=== PATIENT | female | born 1995 | race Caucasian/White ===

== ENCOUNTER 2020-04-18 22:08 | Emergency (ER) | payer OTHER ==
[~2020-04-18] VITALS: Ht 154.9 cm; Wt 68.0 kg
--- NOTE | 2020-04-18 22:42 | Emergency Department Note ---
History of Present Illnes History of Present Illness Chief Complaint: COVID PUI History of Present Illness This is a 25 year old female 4 days of fever myalgias and DORAN . Arrival Mode: Car Onset (how long ago): day(s) (4) Severity: mild Onset quality: gradual Duration (how long): day(s) (4) Timing of current episode: constant Progression: unchanged Chronicity: new Relieving factors: none Exacerbating factors: none Associated symptoms: Reports fever/chills, Reports headaches, Reports malaise Past Medical/Family History Physician Review I have reviewed the patient's past medical and family history. Any updates have been documented here. Past Medical History Recent Fever: Yes Clinical Suspicion of Infectio: Yes New/Unexplained Change in Ment: No Social History Smoking Cessation: Never Smoker Alcohol Use: None Any Illegal Drug Use: No Review of Systems Review of Systems Constitutional: Reports fever, Reports malaise, Reports weakness EENTM: Reports no symptoms Cardiovascular: Reports no symptoms Respiratory: Reports no symptoms Gastrointestinal: Reports no symptoms Genitourinary: Reports no symptoms Musculoskeletal: Reports no symptoms Integumentary: Reports no symptoms Neurological: Reports headache Psychological: Reports no symptoms Endocrine: Reports no symptoms Hematological/Lymphatic: Reports no symptoms Physical Exam Related Data Allergies: Coded Allergies: No Known Allergies (Unverified , 04/18/20) Vital signs reviewed: Yes Physical Exam CONSTITUTIONAL Constitutional: Present well-developed, Present well-nourished HENT HENT: Present normocephalic, Present atraumatic, Present oropharynx clear/moist, Present nose normal HENT L/R: Present left ext ear normal, Present right ext ear normal EYES Eyes: Reports PERRL, Reports conjunctivae normal NECK Neck: Present ROM normal PULMONARY Pulmonary: Present effort normal, Present breath sounds normal CARDIOVASCULAR Cardiovascular: Present heart sounds normal, Present tachycardia GASTROINTESTINAL Abdominal: Present soft, Present nontender, Present bowel sounds normal GENITOURINARY Genitourinary: Present exam deferred SKIN Skin: Present warm, Present dry MUSCULOSKELETAL Musculoskeletal: Present ROM normal NEUROLOGICAL Neurological: Present alert, Present oriented x 3, Present no gross motor or sensory deficits PSYCHOLOGICAL Psychological: Present mood/affect normal, Present judgement normal Assessment & Plan Medical Decision Making MDM 25 yof with fever and myalgias. (+) contact with family members with similiar symptoms. COVID-19 highly suspected but testing deferred secondary to stable vital signs and high oxygen saturation on RA. Patient to be given Rx Azithromycin and albuterol. Patient to be given resources for outpatient testing center- Assessment & Plan Final Impression: (1) Viral syndrome Depart Disposition: HOME, SELF-CARE DEBO CHRIS DO Apr 18, 2020 22:42
[2020-04-18] MEDS ORDERED: ACETAMINOPHEN 325 MG TAB ONE (22:51)
== END 2020-04-19 00:05 | disposition home or self-care (01) ==
LOC: ER 22:39
DX: B34.9 Viral infection, unspecified (principal); R50.9 Fever, unspecified; R51 Headache; M79.10 Myalgia, unspecified site
CPT/HCPCS: 99283

== ENCOUNTER 2020-06-01 20:11 | Emergency (ER) | payer OTHER ==
[~2020-06-01] VITALS: Ht 154.9 cm; Wt 68.0 kg
[2020-06-01] MEDS ORDERED: METHYLPREDNISOLONE SOD SUCC 125 MG/2ML VIAL ONE (20:56)
[2020-06-01] MEDS ORDERED: FAMOTIDINE 20 MG TAB ONE (20:56)
[2020-06-01] MEDS ORDERED: DIPHENHYDRAMINE HCL 25 MG CAP ONE (20:57)
[2020-06-01] MEDS ORDERED: METHYLPREDNISOLONE SOD SUCC 125 MG/2ML VIAL IM ONE (21:00)
[2020-06-01] MEDS ORDERED: FAMOTIDINE 20 MG TAB PO ONE (21:00)
[2020-06-01] MEDS ORDERED: DIPHENHYDRAMINE HCL 25 MG CAP PO ONE (21:00)
[2020-06-01 21:07] VITALS: BP 122/78
--- NOTE | 2020-06-01 21:10 | Emergency Department Note ---
History of Present Illnes History of Present Illness Chief Complaint: Skin Rash or Abscess History of Present Illness This is a 25 year old female presents to ED with hives, itching sensation to all extremities, torso. Pt states s/s started at 2200 yesterday when pt was in backyard.. Denies sob . Historian: Patient Arrival Mode: Car Onset (how long ago): day(s) (1) Location: all over Quality: rash/hives Radiation: Reports non-radiation Severity: moderate Onset quality: sudden Duration (how long): day(s) (1) Timing of current episode: constant Progression: unchanged Chronicity: new Context: Denies recent illness, Denies recent surgery, Denies trauma/injury Relieving factors: none Exacerbating factors: none Associated symptoms: Reports denies other symptoms Treatments prior to arrival: other (took benaryl once last night) Past Medical/Family History Physician Review I have reviewed the patient's past medical and family history. Any updates have been documented here. Past Medical History Recent Fever: No Clinical Suspicion of Infectio: No New/Unexplained Change in Ment: No Past Medical History: None Past Surgical History: None Social History Smoking Cessation: Never Smoker Counseling Performed: No Alcohol Use: None Any Illegal Drug Use: No Family History Family history of heart diseas: No Other Any Pre-Existing Lines (PICC,: No Review of Systems Review of Systems Constitutional: Reports no symptoms EENTM: Reports no symptoms Cardiovascular: Reports no symptoms Respiratory: Reports no symptoms Gastrointestinal: Reports no symptoms Genitourinary: Reports no symptoms Musculoskeletal: Reports no symptoms Integumentary: Reports as per HPI Neurological: Reports no symptoms Psychological: Reports no symptoms Endocrine: Reports no symptoms Hematological/Lymphatic: Reports no symptoms Physical Exam Related Data Allergies: Coded Allergies: No Known Allergies (Unverified , 04/18/20) Triage Vital Signs Vital Signs Date Time Temp Pulse Resp B/P (MAP) Pulse Ox O2 Delivery O2 Flow Rate FiO2 06/01/20 20:47 98.3 69 17 130/89 100 Room Air Vital signs reviewed: Yes Physical Exam CONSTITUTIONAL Constitutional: Present well-developed, Present well-nourished; Absent distressed HENT HENT: Present normocephalic, Present atraumatic, Present oropharynx cl ear/moist, Present nose normal HENT L/R: Present left ext ear normal, Present right ext ear normal EYES Eyes: Reports PERRL, Reports conjunctivae normal NECK Neck: Present ROM normal PULMONARY Pulmonary: Present effort normal, Present breath sounds normal CARDIOVASCULAR Cardiovascular: Present regular rhythm, Present heart sounds normal, Present capillary refill normal, Present normal rate GASTROINTESTINAL Abdominal: Present soft, Present nontender, Present bowel sounds normal GENITOURINARY Genitourinary: Present exam deferred SKIN Skin: Present warm, Present dry, Present rash (hives to all extremities and torso) MUSCULOSKELETAL Musculoskeletal: Present ROM normal NEUROLOGICAL Neurological: Present alert, Present oriented x 3, Present no gross motor or sensory deficits PSYCHOLOGICAL Psychological: Present mood/affect normal, Present judgement normal Assessment & Plan Medical Decision Making [facility] pt with hives solu-medrol 125 mg im ordered benadryl 25 mg po ordered pepci 20 mg po ordered PT DISCHARGED WITH PRESCRIPTION FOR MEDROL DOSE PACK DIRECTED INSTRUCTED ON OTC BENADRYL AND PEPCID WELL Reassessment Reassessment time: 21:50 Reassessment RASH HAS IMPROVED, PT STATES ITCHING HAS RESOLVED AT THIS TIME Assessment & Plan Final Impression: (1) Hives Depart Disposition: HOME, SELF-CARE Last Vital Signs Date Time Temp Pulse Resp B/P (MAP) Pulse Ox O2 Delivery O2 Flow Rate FiO2 06/01/20 20:47 98.3 69 17 130/89 100 Room Air Medications in the ED Famotidine 40 mg STK-MED ONCE .ROUTE ; Start 06/01/20 at 20:56; Stop 06/01/20 at 20:50; Status DC Methylprednisolone Sodium Succinate 125 mg STK-MED ONCE .ROUTE ; Start 06/01/20 at 20:56; Stop 06/01/20 at 20:50; Status DC Diphenhydramine HCl 25 mg STK-MED ONCE .ROUTE ; Start 06/01/20 at 20:57; Stop 06/01/20 at 20:50; Status DC Diphenhydramine HCl 25 mg ONCE ONCE PO ; Start 06/01/20 at 21:00; Stop 06/01/20 at 21:01; Status DC Famotidine 20 mg ONCE ONCE PO ; Start 06/01/20 at 21:00; Stop 06/01/20 at 21:01; Status DC Methylprednisolone Sodium Succinate 125 mg ONCE ONCE IM ; Start 06/01/20 at 21:00; Stop 06/01/20 at 21:01; Status DC DMITRY SIEGEL MD Jun 01, 2020 21:10
--- OUTSIDE RECORDS SUMMARY | 2020-06-01 22:08 | XMS REPORT | Continuity of Care Document ---
Author Author [facility] Organization [facility] Address [address] [place] [address] Phone Unavailable Care Team Providers Care Express Clerk Name Role Phone MD MICHAEL NEAL PCP Payers Payer Name Policy Type Policy Number Effective Date Expiration Date Ignacia quiros [facility] [id number] [facility] Problems Condition Name Condition Details Condition Category Status Onset Date Resolution Date Last Treatment Date Treating Clinician Comments Source Viral infection Problem Active [facility] Allergies, Adverse Reactions, Alerts Allergy Name Allergy Type Status Severity Reaction(s) Onset Date Inacti ve Date Treating Clinician Comments Source No Known Allergies DA Active U 2020-01-11 00:00:00 [facility] Social History Social Habit Start Date Stop Date Quantity Comments Source Sex Assigned At 1995 00:00:00 1995 00:00:00 Female [facility] Medications This patient has no known medications. Vital Signs Vital Name Observation Time Observation Value Comments Source Weight 2020-04-18 22:47:00 150 [lb_av] [facility] BMI (Body Mass Index) 2020-04-18 22:47:00 28.3 kg/m2 [facility] Procedures This patient has no known procedures. Plan of Care Planned Activity Planned Date Details Comments Source Instructions COVID-19: 12/29/2019 [facility] Instructions Fever - Adult [facility] Encounters Start Date/Time End Date/Time Encounter Type Admission Type Att[facility] Care Department Encounter ID Source 2020-04-18 22:39:2020-04-19 00:05:00 Departed Emergency Room [facility] [id number] [facility] Results Test Description Test Time Test Comments Results Result Comments Source CBC W/AUTO DIFF 2020-01-14 05:57:00 Test Item WHITE BLOOD CELL (test code = WBC) 15.0 K/mm3 4.5-12.5 H RED BLOOD CELL (test code = RBC) 3.76 mill/mm3 3.7-5.2 N HEMOGLOBIN (test code = HGB) 10.3 gram/dL 11.5-15.5 L HEMATOCRIT (test code = HCT) 31.4 % 36.0-46.0 L MEAN CELL VOLUME (test code = MCV) 83.5 fL 80-98 N MEAN CELL HGB (test code = MCH) 27.4 picogram 27.0-33.0 N MEAN CELL HGB CONCETRATION (test code = MCHC) 32.8 gram/dL 33.0-36. 0 L RED CELL DISTRIBUTION WIDTH (test code = RDW) 14.0 % 11.6-16. 2 N RED CELL DISTRIBUTION WIDTH SD (test code = RDW-SD) 42.6 fL 37 .0-51.0 N PLATELET COUNT (test code = PLT) 227 K/mm3 150-450 N MEAN PLATELET VOLUME (test code = MPV) 11.1 fL 6.7-11.0 H NEUTROPHIL % (test code = NT%) 67.6 % 39.0-69.0 N IMMATURE GRANULOCYTE % (test code = IG%) 0.9 % 0.0-5.0 N LYMPHOCYTE % (test code = LY%) 23.1 % 25.0-55.0 L MONOCYTE % (test code = MO%) 7.3 % 0.0-10.0 N EOSINOPHIL % (test code = EO%) 1.0 % 0.0-5.0 N BASOPHIL % (test code = BA%) 0.1 % 0.0-1.0 N NUCLEATED RBC % (test code = NRBC%) 0.0 % 0-0 N NEUTROPHIL # (test code = NT#) 10.13 K/mm3 1.8-7.7 H IMMATURE GRANULOCYTE # (test code = IG#) 0.13 x10 3/uL 0-0.03 H LYMPHOCYTE # (test code = LY#) 3.46 K/mm3 1.0-5.0 N MONOCYTE # (test code = MO#) 1.10 K/mm3 0-0.8 H EOSINOPHIL # (test code = EO#) 0.15 K/mm3 0.0-0.5 N BASOPHIL # (test code = BA#) 0.02 K/mm3 0.0-0.2 N NUCLEATED RBC # (test code = NRBC#) 0.00 K/mm3 0.0-0.1 N CBC W/AUTO [id number] 05:31:00* Test Item Value Reference Range Interpretation Comments WHITE BLOOD CELL (test code = WBC) 13.4 K/mm3 4.5-12.5 H RED BLOOD CELL (test code = RBC) 3.44 mill/mm3 3.7-5.2 L HEMOGLOBIN (test code = HGB) 9.5 gram/dL 11.5-15.5 L RESULT VERIFIED BY REPEAT ANALYSIS HEMATOCRIT (test code = HCT) 28.5 % 36.0-46.0 L MEAN CELL VOLUME (test code = MCV) 82.8 fL 80-98 N MEAN CELL HGB (test code = MCH) 27.6 picogram 27.0-33.0 N MEAN CELL HGB CONCETRATION (test code = MCHC) 33.3 gram/dL 33.0-36. 0 N RED CELL DISTRIBUTION WIDTH (test code = RDW) 13.9 % 11.6-16. 2 N RED CELL DISTRIBUTION WIDTH SD (test code = RDW-SD) 41.4 fL 37 .0-51.0 N PLATELET COUNT (test code = PLT) 183 K/mm3 150-450 N MEAN PLATELET VOLUME (test code = MPV) 11.5 fL 6.7-11.0 H NEUTROPHIL % (test code = NT%) 64.3 % 39.0-69.0 N IMMATURE GRANULOCYTE % (test code = IG%) 0.7 % 0.0-5.0 N LYMPHOCYTE % (test code = LY%) 25.2 % 25.0-55.0 N MONOCYTE % (test code = MO%) 8.8 % 0.0-10.0 N EOSINOPHIL % (test code = EO%) 0.7 % 0.0-5.0 N BASOPHIL % (test code = BA%) 0.3 % 0.0-1.0 N NUCLEATED RBC % (test code = NRBC%) 0.0 % 0-0 N NEUTROPHIL # (test code = NT#) 8.60 K/mm3 1.8-7.7 H IMMATURE GRANULOCYTE # (test code = IG#) 0.09 x10 3/uL 0-0.03 H LYMPHOCYTE # (test code = LY#) 3.37 K/mm3 1.0-5.0 N MONOCYTE # (test code = MO#) 1.17 K/mm3 0-0.8 H EOSINOPHIL # (test code = EO#) 0.10 K/mm3 0.0-0.5 N BASOPHIL # (test code = BA#) 0.04 K/mm3 0.0-0.2 N NUCLEATED RBC # (test code = NRBC#) 0.00 K/mm3 0.0-0.1 N MANUAL DIFF REQUIRED (test code = MDIFF) NO SPECIMEN COMMENTS: day 1HIV 1 2 COMBO AG/AB [id number] 22:25:00 * Test Item Value Reference Range Interpretation Comments HIV 1 2 COMBO AG/AB SCREEN (test code = [id number]) AB/AG NO N REACTIVE NONREACTIVE NONREACTIVE HIV P24 ANTI GEN NONREACTIVE NONREACTIVE HIV 1&2 ANTIBODY NONREACTIVE THE HIV-1 P24 TEST HELPS DISTINGUISH ACUTE HIV-1INFECTIONFROM ESTABLISHED HIV-1 INFECTION WHEN THE SPECIMEN ISPOSITIVE FOR HIV-1 P24 ANTIGEN. HIV-1 P24 ANTIGEN IS HIGHEST IN THE FIRST FEW WEEKS AFTERINFECTION AG HEPAT B [id number] 22:18:00* Test Item Value Reference Range Interpretation Comments AG HEPAT B SURF (test code = HBSAG) Nonreactive Index Nonreactive AB [id number] 22:18:00* Test Item Value Reference Range Interpretation Comments AB TREPONEMA (test code = TREPAB) Nonreactive Index NonReactive URINALYSIS [id number] 21:50:00* Test Item Value Reference Range Interpretation Comments UA COLOR (test code = COLU) COLORLESS YELLOW A UA APPEARANCE (test code = APPU) CLEAR CLEAR UA GLUCOSE DIPSTICK (test code = DGLUU) NEGATIVE mg/dL NEGATIVE UA BILIRUBIN DIPSTICK (test code = BILU) NEGATIVE mg/dL NEGATIVE UA KETONE DIPSTICK (test code = KETU) NEGATIVE mg/dL NEGATIVE UA SPECIFIC GRAVITY (test code = SGU) 1.004 1.001-1.035 UA BLOOD DIPSTICK (test code = SPENCER) 0.06 mg/dL (1+) mg/dL NEGATIVE A UA PH DIPSTICK (test code = BRIGID) 6.5 5.0-8.0 UA PROTEIN DIPSTICK (test code = PROU) NEGATIVE mg/dL NEGATIVE UA UROBILINIOGEN DIPSTICK (test code = URO) Normal mg/dL NEGATIVE UA NITRITE DIPSTICK (test code = ROXANNE) NEGATIVE NEGATIVE UA LEUKOCYTE ESTERASE W REFLEX (test code = LEUUR) NEGATIVE Kathe/uL NEGATIVE UA WBC (test code = WBCU) 0-5 per HPF 0-5 UA RBC (test code = RBCU) 0-3 #/HPF 0-5 UA EPITHELIAL CELLS (test code = EPIU) MOD per HPF FEW UA BACTERIA (test code = BACU) FEW #/HPF NONE A UA MUCUS (test code = MUCU) FEW #/LPF FEW URINALYSIS [id number] 21:49:00* Test Item Value Reference Range Interpretation Comments UA COLOR (test code = COLU) COLORLESS YELLOW A UA APPEARANCE (test code = APPU) CLEAR CLEAR UA GLUCOSE DIPSTICK (test code = DGLUU) NEGATIVE mg/dL NEGATIVE UA BILIRUBIN DIPSTICK (test code = BILU) NEGATIVE mg/dL NEGATIVE UA KETONE DIPSTICK (test code = KETU) NEGATIVE mg/dL NEGATIVE UA SPECIFIC GRAVITY (test code = SGU) 1.004 1.001-1.035 UA BLOOD DIPSTICK (test code = SPENCER) 0.06 mg/dL (1+) mg/dL NEGATIVE A UA PH DIPSTICK (test code = BRIGID) 6.5 5.0-8.0 UA PROTEIN DIPSTICK (test code = PROU) NEGATIVE mg/dL NEGATIVE UA UROBILINIOGEN DIPSTICK (test code = URO) Normal mg/dL NEGATIVE UA NITRITE DIPSTICK (test code = ROXANNE) NEGATIVE NEGATIVE UA LEUKOCYTE ESTERASE W REFLEX (test code = LEUUR) NEGATIVE Kathe/uL NEGATIVE UA WBC (test code = WBCU) per HPF 0-5 UA RBC (test code = RBCU) per HPF 0-5 UA EPITHELIAL CELLS (test code = EPIU) per HPF Few UA BACTERIA (test code = BACU) per HPF NONE URINALYSIS [id number] 21:49:00* Test Item Value Reference Range Interpretation Comments UA COLOR (test code = COLU) COLORLESS YELLOW A UA APPEARANCE (test code = APPU) CLEAR CLEAR UA GLUCOSE DIPSTICK (test code = DGLUU) NEGATIVE mg/dL NEGATIVE UA BILIRUBIN DIPSTICK (test code = BILU) NEGATIVE mg/dL NEGATIVE UA KETONE DIPSTICK (test code = KETU) NEGATIVE mg/dL NEGATIVE UA SPECIFIC GRAVITY (test code = SGU) 1.004 1.001-1.035 UA BLOOD DIPSTICK (test code = SPENCER) 0.06 mg/dL (1+) mg/dL NEGATIVE A UA PH DIPSTICK (test code = BRIGID) 6.5 5.0-8.0 UA PROTEIN DIPSTICK (test code = PROU) NEGATIVE mg/dL NEGATIVE UA UROBILINIOGEN DIPSTICK (test code = URO) Normal mg/dL NEGATIVE UA NITRITE DIPSTICK (test code = ROXANNE) NEGATIVE NEGATIVE UA LEUKOCYTE ESTERASE W REFLEX (test code = LEUUR) NEGATIVE Kathe/uL NEGATIVE UA WBC (test code = WBCU) per HPF 0-5 UA RBC (test code = RBCU) per HPF 0-5 UA EPITHELIAL CELLS (test code = EPIU) per HPF Few UA BACTERIA (test code = BACU) per HPF NONE CBC W/AUTO [id number] 21:44:00* Test Item Value Reference Range Interpretation Comments WHITE BLOOD CELL (test code = WBC) 10.2 K/mm3 4.5-12.5 N RED BLOOD CELL (test code = RBC) 4.31 mill/mm3 3.7-5.2 N HEMOGLOBIN (test code = HGB) 11.7 gram/dL 11.5-15.5 N HEMATOCRIT (test code = HCT) 35.6 % 36.0-46.0 L MEAN CELL VOLUME (test code = MCV) 82.6 fL 80-98 N MEAN CELL HGB (test code = MCH) 27.1 picogram 27.0-33.0 N MEAN CELL HGB CONCETRATION (test code = MCHC) 32.9 gram/dL 33.0-36. 0 L RED CELL DISTRIBUTION WIDTH (test code = RDW) 13.5 % 11.6-16. 2 N RED CELL DISTRIBUTION WIDTH SD (test code = RDW-SD) 40.3 fL 37 .0-51.0 N PLATELET COUNT (test code = PLT) 230 K/mm3 150-450 N MEAN PLATELET VOLUME (test code = MPV) 11.5 fL 6.7-11.0 H NEUTROPHIL % (test code = NT%) 64.8 % 39.0-69.0 N IMMATURE GRANULOCYTE % (test code = IG%) 0.5 % 0.0-5.0 N LYMPHOCYTE % (test code = LY%) 25.0 % 25.0-55.0 N MONOCYTE % (test code = MO%) 8.7 % 0.0-10.0 N EOSINOPHIL % (test code = EO%) 0.7 % 0.0-5.0 N BASOPHIL % (test code = BA%) 0.3 % 0.0-1.0 N NUCLEATED RBC % (test code = NRBC%) 0.0 % 0-0 N NEUTROPHIL # (test code = NT#) 6.64 K/mm3 1.8-7.7 N IMMATURE GRANULOCYTE # (test code = IG#) 0.05 x10 3/uL 0-0.03 H LYMPHOCYTE # (test code = LY#) 2.56 K/mm3 1.0-5.0 N MONOCYTE # (test code = MO#) 0.89 K/mm3 0-0.8 H EOSINOPHIL # (test code = EO#) 0.07 K/mm3 0.0-0.5 N BASOPHIL # (test code = BA#) 0.03 K/mm3 0.0-0.2 N NUCLEATED RBC # (test code = NRBC#) 0.00 K/mm3 0.0-0.1 N MANUAL DIFF REQUIRED (test code = MDIFF) NO
== END 2020-06-01 21:50 | disposition home or self-care (01) ==
LOC: ER 20:17
DX: L50.9 Urticaria, unspecified (principal)
CPT/HCPCS: 99283; J2930